=== PATIENT | female | born 2000 | race Caucasian/White ===

== ENCOUNTER 2019-02-23 22:25 | Emergency (ER) | payer OTHER, SELFPAY ==
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
[2019-02-23] MEDS ORDERED: NAPR-837 PO (23:53)
[2019-02-24 00:10] VITALS: BP 135/61
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
== END 2019-02-24 00:11 | disposition home or self-care (01) ==
LOC: EDBD 22:25 → M ED 22:25
DX: Z04.1 Encounter for examination and observation following transport accident (principal); T14.8XXA Other injury of unspecified body region, initial encounter; V49.59XA Passenger injured in collision with other motor vehicles in traffic accident, initial encounter; Y92.410 Unspecified street and highway as the place of occurrence of the external cause